=== PATIENT | female | born 1935 | race Two or more races ===

== ENCOUNTER 2024-07-20 08:53 | Inpatient (IN) | payer MEDICARE ==
[~2024-07-20] VITALS: Ht 167.6 cm; Wt 95.3 kg
[2024-07-20] MEDS ORDERED: FAMOTIDINE/PF INJ 20 MG/2 ML VIAL IV ONE (09:28)
[2024-07-20] MEDS ORDERED: ONDANSETRON HCL/PF 4 MG/2 ML VIAL ONE (09:28)
[2024-07-20] MEDS: FAMOTIDINE/PF INJ 20 MG/2 ML VIAL IV ONE (09:41)
[2024-07-20] MEDS: IV NS 0.9% 1,000 ML BAG IV ONE (09:41)
[2024-07-20] MEDS: ONDANSETRON HCL/PF 4 MG/2 ML VIAL IVP ONE (09:42)
[2024-07-20 10:07] LABS: ALANINE AMINOTRANSFERASE 32 U/L (12-78); ALBUMIN 3.3 g/dL (3.4-5.0); ALKALINE PHOSPHATASE 99 U/L (46-116); ASPARTATE AMINOTRANSFERASE 43 U/L (15-37); CALCIUM, SERUM 9.1 mg/dL (8.5-10.1); CARBON DIOXIDE 18 mmol/L (21-32); CHLORIDE 103 mmol/L (98-107); CREATININE 1.1 mg/dL (0.6-1.3); GLUCOSE 292 mg/dL (74-106); LIPASE 18 U/L (16-77); POTASSIUM 4.8 mmol/L (3.5-5.1); SODIUM SERUM 135 mmol/L (136-145); TOTAL PROTEIN, SERUM 7.2 g/dL (6.4-8.2); UREA NITROGEN, BLOOD 20 mg/dL (7-18)
[2024-07-20 10:14] LABS: BILIRUBIN,DIRECT 0.2 mg/dL (0.0-0.2)
[2024-07-20 10:48] LABS: BASOPHILS % (AUTO) 0.1 % (0.0-2.0); EOSINOPHILS % (AUTO) 0.2 % (0.0-6.0); HEMATOCRIT 37 % (33-45); HEMOGLOBIN 12.7 g/dL (11.5-14.8); LYMPHOCYTES # (AUTO) 0.4 K/uL (0.8-4.8); MEAN CORPUSCULAR HEMOGLOBIN 34 PG (26.0-33.0); MEAN CORPUSCULAR HGB CONC 34 g/dl (31.0-36.0); MEAN CORPUSCULAR VOLUME 100 fL (82-100); MONOCYTES # (AUTO) 0.7 K/uL (0.1-1.30); MONOCYTES % (AUTO) 8.3 % (2.0-12.0); NEUTROPHILS # (AUTO) 7.5 K/uL (1.8-8.9); NEUTROPHILS % (AUTO) 86.4 % (43.0-81.0); PLATELET COUNT (AUTO) 131 K/uL (150-450); RED BLOOD CELL COUNT(AUTO) 3.72 MIL/uL (4.0-5.2); RED CELL DISTRIBUTION WIDTH 13.4 % (11.5-15.0); WHITE BLOOD COUNT (AUTO) 8.7 K/uL (4.3-11.0)
[2024-07-20] MEDS ORDERED: FURO20TA4 PO (11:13)
[2024-07-20] MEDS ORDERED: CILO50TA PO (11:13)
[2024-07-20] MEDS ORDERED: METO25TA6 PO (11:13)
[2024-07-20] MEDS ORDERED: OMEP20CA15 PO (11:13)
[2024-07-20] MEDS ORDERED: METF-442 PO (11:13)
[2024-07-20] MEDS ORDERED: METO25TA20 PO (11:13)
[2024-07-20] MEDS ORDERED: ATOR80TA PO (11:13)
[2024-07-20] MEDS ORDERED: SITA50TA PO (11:13)
[2024-07-20] MEDS ORDERED: ASPI-1420 PO (11:13)
[2024-07-20] MEDS ORDERED: CHOL500062 PO (11:13)
[2024-07-20] MEDS ORDERED: LISI5TAB24 PO (11:13)
[2024-07-20] MEDS ORDERED: SPIR25TA6 PO (11:13)
[2024-07-20] MEDS ORDERED: AMIO200T5 PO (11:13)
[2024-07-20 12:05] VITALS: BP 110/68; TEMP 98.1; O2SAT 96
[2024-07-20] MEDS ORDERED: DEXTROSE 50%-WATER 50 ML DISP.SYRIN IV PRN (15:00)
[2024-07-20 16:00] VITALS: BP 120/70; TEMP 98.3; O2SAT 97
[2024-07-20] MEDS ORDERED: ACETAMINOPHEN 325 MG TABLET PO PRN (16:00)
[2024-07-20] MEDS ORDERED: Z GUARD REMEDY 4 OZ OINT TP PRN (16:00)
[2024-07-20] MEDS ORDERED: ONDANSETRON HCL/PF 4 MG/2 ML VIAL IVP PRN (16:00)
[2024-07-20] MEDS: CLOTRIMAZOLE 1% 15 GM TUBE TP SCH (16:39)
[2024-07-20] MEDS: METOPROLOL TARTRATE 50 MG TABLET PO ONE (16:40)
[2024-07-20] MEDS: ENOXAPARIN SODIUM 40 MG/0.4 ML DISP.SYRIN SQ SCH (16:41)
[2024-07-20] MEDS: BLOOD SUGAR DIAGNOSTIC 1 EACH STRIP IN SCH (17:06)
[2024-07-20] MEDS: NYSTATIN TOP POWDER 15 GM BOTTLE TP SCH (17:06)
[2024-07-20] MEDS: INSULIN REGULAR, HUMAN 100 UNIT/ML 3 ML VIAL SQ PRN (17:07)
[2024-07-20] MEDS: IV LR 1000 ML 1,000 ML IV PRN (17:15)
[2024-07-20 20:00] VITALS: BP 99/58; TEMP 99; O2SAT 97
[2024-07-20] MEDS: METOPROLOL TARTRATE 25 MG TABLET PO SCH (21:22)
[2024-07-20] MEDS: ATORVASTATIN 40 MG TABLET PO SCH (21:28)
[2024-07-21] VITALS (7 sets, daily range): BP systolic 100–160; BP diastolic 56–92; TEMP 97.9–99; O2SAT 95–100
[2024-07-21 06:32] LABS: BASOPHILS % (AUTO) 0.4 % (0.0-2.0); EOSINOPHILS % (AUTO) 0.7 % (0.0-6.0); HEMATOCRIT 35 % (33-45); HEMOGLOBIN 12.3 g/dL (11.5-14.8); LYMPHOCYTES # (AUTO) 0.7 K/uL (0.8-4.8); MEAN CORPUSCULAR HEMOGLOBIN 34 PG (26.0-33.0); MEAN CORPUSCULAR HGB CONC 35 g/dl (31.0-36.0); MEAN CORPUSCULAR VOLUME 98 fL (82-100); MONOCYTES # (AUTO) 0.5 K/uL (0.1-1.30); MONOCYTES % (AUTO) 8.8 % (2.0-12.0); NEUTROPHILS # (AUTO) 4.6 K/uL (1.8-8.9); NEUTROPHILS % (AUTO) 78.1 % (43.0-81.0); PLATELET COUNT (AUTO) 122 K/uL (150-450); RED CELL DISTRIBUTION WIDTH 13.8 % (11.5-15.0)
[2024-07-21 07:11] LABS: CHOLESTEROL 114 mg/dL (<200); HDL CHOLESTEROL 45 mg/dL (40-60); LDL 56 mg/dL (0-99); TRIGLYCERIDES 105 mg/dL (30-150)
[2024-07-21 07:16] LABS: CALCIUM, SERUM 8.6 mg/dL (8.5-10.1); CARBON DIOXIDE 24 mmol/L (21-32); CHLORIDE 105 mmol/L (98-107); CREATININE 0.9 mg/dL (0.6-1.3); GLUCOSE 216 mg/dL (74-106); PHOSPHORUS 2.8 mg/dL (2.5-4.9); SODIUM SERUM 138 mmol/L (136-145); UREA NITROGEN, BLOOD 17 mg/dL (7-18)
[2024-07-21 08:03] LABS: MAGNESIUM 1.1 mg/dL (1.8-2.4)
[2024-07-21] MEDS ORDERED: CILOSTAZOL 100 MG TABLET PO SCH (09:00)
[2024-07-21] MEDS: ASPIRIN EC 81 MG TABLET.DR PO SCH (09:37)
[2024-07-21] MEDS: CILOSTAZOL 100 MG TABLET PO SCH (09:38)
[2024-07-21] MEDS: PANTOPRAZOLE 40 MG TABLET.DR PO SCH (09:38)
[2024-07-21] MEDS: METOPROLOL TARTRATE 25 MG TABLET PO SCH (09:38)
[2024-07-21] MEDS: AMIODARONE HCL 200 MG TABLET PO SCH (09:38)
[2024-07-21] MEDS: SPIRONOLACTONE 25 MG TABLET PO SCH (09:38)
[2024-07-21] MEDS: LINAGLIPTIN 5 MG TABLET PO SCH (09:40)
[2024-07-21] MEDS: Magnesium 1GM/D5W 100ML PREMIX 100 ML IV SCH (10:37)
[2024-07-21] MEDS: APIXABAN 5 MG TABLET PO SCH (10:45)
[2024-07-22] VITALS: BP 129/66; TEMP 98.2; O2SAT 95
[2024-07-22 04:00] VITALS: BP 135/70; TEMP 98.8; O2SAT 96
[2024-07-22 08:00] VITALS: BP 139/71; TEMP 98.7; O2SAT 96
[2024-07-22] MEDS: METOPROLOL SUCCINATE 50 MG TAB.SR.24H PO SCH (09:06)
[2024-07-22 12:00] VITALS: BP 137/62; TEMP 98.1; O2SAT 96
[2024-07-22 14:20] VITALS: BP 117/52; TEMP 99.1; O2SAT 95
[2024-07-22] MEDS ORDERED: AMMO225L14 TP (14:39)
[2024-07-22] MEDS ORDERED: SILV50CR32 TP (14:39)
[2024-07-22] MEDS ORDERED: CLOT15CR5 TP (14:39)
[2024-07-22] MEDS ORDERED: APIX5TAB PO (14:39)
[2024-07-22] MEDS ORDERED: CLOTRIMAZOLE/BETAMETASONE DIPROPIONATE 15 GM TUBE TP SCH (17:00)
[2024-07-22] MEDS ORDERED: AMMONIUM LACTATE 227 GM BOTTLE TP SCH (17:00)
[2024-07-22] MEDS ORDERED: INSULIN LISPRO/ASPART 100 UNIT/ML CARTRIDGE SQ SCH (17:30)
[2024-07-22] MEDS ORDERED: INSULIN GLARGINE, 100 UNIT/ML CARTRIDGE SQ SCH (22:00)
[2024-07-23] MEDS ORDERED: SILVER SULFADIAZINE CREAM 25 GM TUBE TP SCH (09:00)
== END 2024-07-22 15:45 | disposition hospice, home (50) | DRG 308 ==
LOC: ER 08:58 → TELE1 10:12
PROVIDERS: ADMIT Nurse Practitioner Acute Care; ATTEND Nurse Practitioner Acute Care
DX: I48.91 Unspecified atrial fibrillation (principal); I50.33 Acute on chronic diastolic (congestive) heart failure; E87.1 Hypo-osmolality and hyponatremia; D68.59 Other primary thrombophilia; E87.20 Acidosis, unspecified; Z66 Do not resuscitate; Z79.899 Other long term (current) drug therapy; I42.9 Cardiomyopathy, unspecified; I11.0 Hypertensive heart disease with heart failure; K21.9 Gastro-esophageal reflux disease without esophagitis; D69.6 Thrombocytopenia, unspecified; E11.621 Type 2 diabetes mellitus with foot ulcer; L97.529 Non-pressure chronic ulcer of other part of left foot with unspecified severity; E11.65 Type 2 diabetes mellitus with hyperglycemia; E78.5 Hyperlipidemia, unspecified; E83.42 Hypomagnesemia; F03.90 Unspecified dementia, unspecified severity, without behavioral disturbance, psychotic disturbance, mood disturbance, and anxiety; L30.4 Erythema intertrigo; B36.8 Other specified superficial mycoses; Z79.84 Long term (current) use of oral hypoglycemic drugs
CPT/HCPCS: 36415; 71045-TC; 80048-TC; 80061-TC; 80076-TC; 82010-TC; 82962-TC; 83690-TC; 83735-TC; 84100-TC; 84443-TC; 84484-TC; 85025-TC; 93307-TC; 93970-TC; 97116-TC; 97530-TC; A4223; G0378; J1650; J1815; J2405; J3475; J3490; J7030; J7120